=== PATIENT | male | born 1995 | race Caucasian/White ===

== ENCOUNTER 2019-11-10 16:34 | Emergency (ER) | payer OTHER ==
[2019-11-10 17:07] VITALS: BMI 19.5
--- OUTSIDE RECORDS SUMMARY | 2019-11-10 17:24 | XMS ---
:1995 Author Organization [facility] Support Name Relationship Address Phone UE Unavailable Unavailable Unavailable LISANDRO ABAD MOTHER [address] [facility] [phone] [place] [address] Re-disclosure Warning The records that you are about to access may contain information from federally- assisted alcohol or drug abuse programs. If such information is present, then the following federally mandated warning applies: This information has been disclosed to you from records protected by federal confidentiality rules (42 CFR part 2). The federal rules prohibit you from making any further disclosure of this information unless further disclosure is expressly permitted by the written consent of the person to whom it pertains or as otherwise permitted by 42 CFR part 2. A general authorization for the release of medical or other information is NOT sufficient for this purpose. The Federal rules restrict any use of the information to criminally investigate or prosecute any alcohol or drug abuse patient.The records that you are about to access may contain highly sensitive health information, the redisclosure of which is protected by Article 27-F of the [facility] Public Health law. If you continue you may haveaccess to information: Regarding HIV / AIDS; Provided by facilities licensed or operated by the [facility] Office of Mental Health; or Provided by the [facility] Office for People With Developmental Disabilities. If such information is present, then the following [facility] mandated warning applies: This information has been disclosed to you from confidential records which are protected by state law. State law prohibits you from making any further disclosure of this information without the specific written consent of the person to whom it pertains, or as otherwise permitted by law. Any unauthorized further disclosure in violation of state law may result in a fine or senior living sentence or both. A general authorization for the release of medical or other information is NOT sufficient authorization for further disclosure. Insurance Providers Payer name Policy type Policy ID Covered Covered alliance party's Policy P diamond / Coverage alliance party ID relationship to [employer] Inf ormation type schreiber [place] [id number] [address] [place] [address] NON CAP
[2019-11-10] MEDS ORDERED: FAMOTIDINE 20 MG/50 ML IVPB 20 MG/50 ML MG IVPB ONE ×2 (17:28→18:45)
[2019-11-10] MEDS ORDERED: ONDANSETRON 4 MG/2 ML VIAL IVPUSH ONE (17:28)
[2019-11-10] MEDS ORDERED: SODIUM CHLORIDE 1,000 ML IV STA (17:28)
--- NOTE | 2019-11-10 17:41 | PDOC ---
History of Present Illness - General Chief Complaint: Nausea/Vomiting Stated Complaint: VOMITING Time Seen by Provider: 11/10/19 17:19 History Source: Patient Exam Limitations: No Limitations - History of Present Illness Initial Comments: 11/10/19 17:36 Patient is a 24-year-old male with no past medical history who presents to the ED with complaint of dizziness with 5 episodes of vomiting today. He states that he has been having these episodes all day. He states it is not associated with getting up quickly or with walking. He denies change of position increasing his symptoms. He denies drinking excessive amounts of alcohol yesterday. He states currently he does not have any dizziness. He denies any fevers or chills. He denies any abdominal pain. He has not taken anything for his symptoms. The patient denies any recent travel. Past History - Medical History Allergies/Adverse Reactions: Allergies Allergy/AdvReac Type Severity Reaction Status Date / Time No Known Allergies Allergy Verified 11/10/19 18:35 COPD: No - Psycho-Social/Smoking History Smoking History: Never smoked - Substance Abuse Hx (Audit-C & DAST Scrn) How often the patient has a drink containing alcohol: Never Score: In Men: 4 or > Positive; In Women: 3 or > Positive: 0 Screen Result (Pos requires Nsg. Audit-10AR): Negative Review of Systems - Review of Systems Comments:: 11/10/19 17:38 - Review of Systems Able to Perform ROS?: Yes Constitutional: No: Fever, Chills, Loss of Appetite, Night Sweats, Weakness HEENTM: No: Eye Pain, Vision changes, Ear Pain, Throat Pain, Throat Swelling, Mouth Pain, Difficulty Swallowing Respiratory: No: Cough, Shortness of Breath, Wheezing, Sputum Production Cardiac (ROS): No: Chest Pain, Chest Tightness, Palpitations, Irregular Heart Beat, Edema ABD/GI: No: Abdominal Pain, Diarrhea; positive: Nausea and vomiting : No Dysuria, No Hematuria, No Frequency, No Urgency Musculoskeletal: No: Muscle Pain, Back Pain, Joint Pain, Muscle Weakness, Neck Pain Integumentary: No: Lesions, Rash Neurological: No: Headache, Numbness, Tingling, Weakness, Speech Difficulties; positive: Dizziness *Physical Exam - Vital Signs Last Vital Signs Temp Pulse Resp BP Pulse Ox 97.8 F 104 H 20 107/51 L 98 10/04/20 17:05 11/10/19 17:05 11/10/19 17:05 11/10/19 17:05 11/10/19 17:05 - Physical Exam 11/10/19 17:39 - Physical Exam General Appearance: Nourished, Appropriately Dressed, No Distress HEENT: EOMI, Normal Voice, No Pharyngeal Erythema, No Muffled/Hoarse voice, No Tonsillar Exudate, No Tonsillar Erythema, No Nasal Congestion, No Rhinorrhea, Hearing Grossly Normal, TMs Normal, No TM Bulging, No TM Dullness, No TM Erythema; moist oral mucosa Neck: Supple, No Lymphadenopathy (R), No Lymphadenopathy (L), No Rigidity, No Decreased range of motion Respiratory/Chest: Lungs Clear, Normal Breath Sounds. No Respiratory Distress, No Accessory Muscle Use Cardiovascular: Regular Rhythm, Regular Rate, S1, S2 Gastrointestinal/Abdominal: Normal Bowel Sounds, Soft. Non-tender, No Guarding, No Rebound, No Rigidity; no reproducible abdominal tenderness to palpation Musculoskeletal: Normal Inspection. No Decreased Range of Motion Extremity: Normal Capillary Refill, Normal Inspection Integumentary: Normal Color, Dry. No Rash Neurologic: center medical specialist II-XII NML intact, Fully Oriented, Alert, Normal Mood/Affect, Normal Response; normal exam without ataxic gait. No nystagmus appreciated. Walking without difficulty. No reproducible dizziness with Oakwood-Hallpike maneuver ED Treatment Course - LABORATORY CBC & Chemistry Diagram: 11/10/19 17:45 11/10/19 17:45 Medical Decision Making - Medical Decision Making 11/10/19 17:41 Assessment: Patient is a 24-year-old male with 5-6 episodes of nausea and vomiting today after dizzy spells. Plan: -Labs ordered including cardiac panel -EKG ordered -1 L of NS ordered -Zofran and Pepcid ordered -Will reassess 11/10/19 18:40 Patient states that he is feeling better after the fluids and the medication. He is still pending his CMP for further evaluation. 11/10/19 18:52 The patient has been made aware that his labs are all within normal limits. The patient will follow-up with his primary doctor for further evaluation and treatment. His symptoms have resolved. He understands and agrees with this treatment plan and he is stable for discharge. Discharge - Discharge Information Problems reviewed: Yes Clinical Impression/Diagnosis: Dizziness Nausea and vomiting Qualifiers: Vomiting type: unspecified Vomiting Intractability: non-intractable Qualified Code(s): R11.2 - Nausea with vomiting, unspecified Condition: Stable Disposition: HOME - Follow up/Referral Referrals: Juan Miguel Chavez MD [Primary Care Provider] - 2 Days - Patient Discharge Instructions Patient Printed Discharge Instructions: DI for Vomiting -- Adult Additional Instructions: Get plenty of rest and drink plenty of fluids. Eat a bland diet for the next few days. Follow-up with your primary doctor within 1 to 2 days for repeat evaluation. - Post Discharge Activity Work/Back to School Note: Back to Work
[2019-11-10 18:13] LABS: BASO % 0.4 % (0-2.0); HEMATOCRIT 46.2 % (35.4-49); HEMOGLOBIN 16.1 GM/dL (11.7-16.9); LYMPH % 11.1 % (8-40); MCHC 34.8 g/dl (32.0-35.9); MEAN CELL VOLUME 86.2 fl (80-96); MEAN PLT VOLUME 9.3 fl (7.5-11.1); NEUT % 83.5 % (42.8-82.8); PLATELET COUNT 213 K/MM3 (134-434); RBC 5.36 M/mm3 (4.00-5.60); RDW 12.8 % (11.9-15.9); WHITE BLOOD COUNT 10.6 K/mm3 (4.0-10.0)
[2019-11-10 18:16] LABS: URINE APPEARANCE CLEAR; URINE BILIRUBIN NEGATIVE (NEGATIVE); URINE COLOR YELLOW; URINE GLUCOSE (UA) NEGATIVE (NEGATIVE); URINE KETONE NEGATIVE (NEGATIVE); URINE LEUK ESTERASE NEGATIVE (NEGATIVE); URINE NITRITE NEGATIVE (NEGATIVE); URINE PROTEIN NEGATIVE (NEGATIVE)
[2019-11-10 18:36] LABS: ALBUMIN 4.7 g/dl (3.4-5.0); ALK PHOS 107 U/L (45-117); ANION GAP 6 MMOL/L (8-16); BILIRUBIN,TOTAL 0.8 mg/dL (0.2-1); BLOOD UREA NITROGEN 7.8 mg/dL (7-18); CHLORIDE 104 mmol/L (98-107); CO2 28 mmol/L (21-32); CREATININE 0.9 mg/dL (0.55-1.3); GLUCOSE,RANDOM 93 mg/dL (74-106); LIPASE 89 U/L (73-393); POTASSIUM 4.1 mmol/L (3.5-5.1); SGOT/AST 23 U/L (15-37); SGPT/ALT 56 U/L (13-61); SODIUM 138 mmol/L (136-145); TOT PROT 8.2 g/dl (6.4-8.2)
[2019-11-10 18:57] VITALS: BP 106/61; PULSE 85; TEMP 97.2
--- NOTE | 2019-11-11 17:04 | EKG ---
Test Reason : Blood Pressure : / mmHG Vent. Rate : 078 BPM Atrial Rate : 078 BPM P-R Int : 148 ms QRS Dur : 086 ms QT Int : 368 ms P-R-T Axes : 068 038 022 degrees QTc Int : 419 ms NORMAL SINUS RHYTHM NORMAL ECG NO PREVIOUS ECGS AVAILABLE Confirmed by JUAN CARLOS SAUNDERS MD ([id number]) on 11/11/2019 5:04:01 PM Referred By: Confirmed By:JUAN CARLOS SAUNDERS MD
== END 2019-11-10 19:14 | disposition home or self-care (01) ==
LOC: JER 16:34
PROC: 3E033GC Introduction of Other Therapeutic Substance into Peripheral Vein, Percutaneous Approach (ICD-10-PCS; principal; 2019-11-10)
PROC: 3E0337Z Introduction of Electrolytic and Water Balance Substance into Peripheral Vein, Percutaneous Approach (ICD-10-PCS; 2019-11-10)
DX: R42 Dizziness and giddiness (principal); R11.2 Nausea with vomiting, unspecified
CPT/HCPCS: 36415; 80053; 81003; 82550; 83690; 84484; 85025; 87086; 93005; 93010; 99284-25

== ENCOUNTER 2020-06-05 14:53 | Emergency (ER) | payer OTHER ==
[2020-06-05 15:15] VITALS: BP 119/79; PULSE 91; TEMP 98.1; BMI 21.5
[2020-06-08 15:09] LABS: E.chaff HME IgG Negative (Neg:<1:64)
[2020-06-09 17:07] LABS: BABESIA MICROTI ANTIBODY IGG 1:20 (Neg:<1:10); BABESIA MICROTI ANTIBODY IGM <1:10 (Neg:<1:10)
== END 2020-06-05 17:07 | disposition home or self-care (01) ==
LOC: JER 14:53 → JERFT 14:53 → JER 17:07
DX: G51.0 Bell's palsy (principal)
CPT/HCPCS: 36415; 86618; 86666; 86753; 99284-25

== ENCOUNTER 2020-06-06 11:14 | Emergency (ER) | payer OTHER ==
[2020-06-06 11:28] VITALS: BP 116/76; PULSE 92; TEMP 97.5; BMI 21.2
[2020-06-06] MEDS ORDERED: ACETAMINOPHEN 650 MG/20.3 ML ORAL SOLUTION (CUPS) PO ONE (12:33)
[2020-06-06] MEDS ORDERED: ACETAMINOPHEN 650 MG/20.3 ML ORAL SOLUTION (CUPS) ONE (12:51)
== END 2020-06-06 15:16 | disposition home or self-care (01) ==
LOC: JER 11:14
DX: G51.0 Bell's palsy (principal)
CPT/HCPCS: 70450-TC; 99284-25

== ENCOUNTER 2021-01-21 18:10 | Emergency (ER) | payer OTHER ==
[2021-01-21 18:19] VITALS: BP 113/70; PULSE 88; TEMP 98; BMI 22.0
[2021-01-21] MEDS ORDERED: KETOROLAC TROMETHAMINE 30 MG/1 ML VIAL IM ONE (19:26)
[2021-01-21] MEDS ORDERED: KETOROLAC TROMETHAMINE 30 MG/1 ML VIAL ONE (20:05)
[2021-01-21] MEDS ORDERED: CYCLOBENZAPRINE HCL 10 MG TABLET (FP) PO ONE (20:15)
[2021-01-21] MEDS ORDERED: CYCLOBENZAPRINE HCL 10 MG TABLET (FP) ONE (20:25)
== END 2021-01-21 20:42 | disposition home or self-care (01) ==
LOC: JERFT 18:10
PROC: 3E023GC Introduction of Other Therapeutic Substance into Muscle, Percutaneous Approach (ICD-10-PCS; principal; 2021-01-21)
DX: M54.9 Dorsalgia, unspecified (principal)
CPT/HCPCS: 72040-TC; 72070-TC-FY; 72100-TC-FY; 73590-TC-RT-FY; 99284-25

== ENCOUNTER 2021-11-24 04:20 | Day surgery (SDC) | payer OTHER ==
[2021-11-23 13:12] VITALS: BMI 20.9
[2021-11-24] MEDS ORDERED: ACETAMINOPHEN 1000 MG/100 ML BAG IVPB ONE (10:26)
[2021-11-24] MEDS ORDERED: DEXTROSE 5%-0.45% SALINE 1,000 ML IV SCH (10:30)
[2021-11-24] MEDS ORDERED: MIDAZOLAM HCL 2 MG/2 ML SINGLE DOSE VIAL ONE (11:06)
[2021-11-24] MEDS ORDERED: PROPOFOL 40 ML ONE (11:07)
[2021-11-24] MEDS ORDERED: GLYCOPYRROLATE 0.2 MG/1 ML VIAL ONE (11:07)
[2021-11-24] MEDS ORDERED: LIDOCAINE HCL/PF 2% SDV 5ML VIAL ONE (11:07)
[2021-11-24] MEDS ORDERED: ceFAZolin SODIUM 1 GM VIAL ONE (11:21)
[2021-11-24] MEDS ORDERED: LIDOCAINE HCL 1%, 10 MG/ML (20ML VIAL) ONE (11:27)
[2021-11-24] MEDS ORDERED: ceFAZolin SODIUM 1 GM VIAL IVPB ONE (11:35)
[2021-11-24] MEDS ORDERED: LIDOCAINE HCL 1%, 10 MG/ML (20ML VIAL) INF ONE (11:49)
[2021-11-24] MEDS ORDERED: DEXAMETHASONE SOD PHOSPHATE 4 MG/1 ML VIAL ONE (11:55)
[2021-11-24] MEDS ORDERED: KETOROLAC TROMETHAMINE 30 MG/1 ML VIAL ONE (11:55)
[2021-11-24] MEDS ORDERED: ONDANSETRON 4 MG/2 ML VIAL ONE (11:55)
[2021-11-24] MEDS ORDERED: ACETAMINOPHEN 325 MG TABLET (FP) PO PRN (12:21)
[2021-11-24] MEDS ORDERED: oxyCODONE HCL 5 MG TABLET PO PRN (12:21)
[2021-11-24] MEDS ORDERED: ONDANSETRON 4 MG/2 ML VIAL IVPUSH PRN (12:21)
[2021-11-24] MEDS ORDERED: LACTATED RINGERS SOLUTION 1,000 ML IV SCH (12:30)
[2021-11-24] MEDS ORDERED: ACETAMINOPHEN INJECTION 100 ML IVPB ONE (12:40)
[2021-11-24] MEDS ORDERED: IBUPROFEN 800 MG/8 ML IJ IVPB SCH (14:00)
[2021-11-24 14:22] VITALS: RESP 16
[2021-11-24 15:04] VITALS: BP 119/72; PULSE 89; TEMP 97.5
== END 2021-11-24 15:05 | disposition home or self-care (01) ==
LOC: JASU-SURG 04:20
PROVIDERS: ATTEND Urology
PROC: 0VNT0ZZ Release Prepuce, Open Approach (ICD-10-PCS; principal; 2021-11-24 12:00)
DX: N47.2 Paraphimosis (principal)
CPT/HCPCS: 94760